=== PATIENT | female | born 1955 | race Caucasian/White ===

== ENCOUNTER 2017-03-20 05:41 | Day surgery (SDC) | payer OTHER ==
[2017-03-20] VITALS (9 sets, daily range): BP systolic 102–117; BP diastolic 58–78
[~2017-03-20] VITALS: Ht 170.2 cm; Wt 52.2 kg
[2017-03-20] MEDS ORDERED: celeBREX 200mg Cap **SURGERY PATIENTS ONLY ORAL ONE (06:00)
[2017-03-20] MEDS ORDERED: ceFAZolin 1gm in D5W 55ml IVP ONE (06:00)
[2017-03-20] MEDS ORDERED: oxyCONTIN 20mg tab ORAL ONE (06:00)
[2017-03-20] MEDS ORDERED: LR 1000ml 1,000 ML IVLG SCH (06:10)
--- NOTE | 2017-03-20 06:10 | Anethesia Preoperative Eval ---
Anesthesia Pre-op PMH/ROS General Date of Evaluation: Mar 20, 2017 Anesthesiologist: Armin ASA Score: ASA 2 Mallampati Score Class I : Soft palate, uvula, fauces, pillars visible Class II: Soft palate, uvula, fauces visible Class III: Soft palate, base of uvula visible Class IV: Only hard plate visible Mallampati Classification: Class II Surgeon: Thomas Diagnosis: Left wrist tendonitis Surgical Procedure: LEft wrist tenolysis Anesthesia History: none Family History: no anesthesia problems Allergies: Coded Allergies: CODEINE (Verified Allergy, Severe, SWELLING, ITCHING, 03/19/17) Medications: see eMAR Past Medical History Cardiovascular: Denies: HTN, CAD, MD, valve dz, arrhythmia, other Pulmonary: Denies: asthma, COPD, EMILY, other Gastrointestinal/Genitourinary: Denies: GERD, CRI, ESRD, other Neurologic/Psychiatric: Denies: dementia, CVA, depression/anxiety, TIA, other Endocrine: Denies: DM, hypothyroidism, steroids, other HEENT: Denies: cataract (L), cataract (R), glaucoma, INAJA (L), INAJA (R), other Hematology/Immune: Reports: anemia - chronic, Denies: DVT, bleeding disorder, other Musculoskeletal/Integumentary: Denies: OA, RA, DJD, DDD, edema, other PSxH Narrative: Left shoulder arthroscopy, right hernia repair, left foot sx Anesthesia Pre-op Phys. Exam Physician Exam see chart Constitutional: NAD Cardiovascular: RRR Respiratory: CTA Airway Exam Mallampati Score: Class II MO: full ROM: full Teeth: intact Anesthesia Pre-op A/P Labs see chart Studies Pre-op Studies: EKG - sr Risk Assessment & Plan Assessment: ASA II Plan: MAC Status Change Before Surgery: No Pre-Antibiotics Drug: Ancef 1g Given Within 1 Hr of Incision: Yes Time Given: 07:00 ERIC JON M.D. Mar 20, 2017 06:10
[2017-03-20] MEDS ORDERED: NKM (06:14)
[2017-03-20] MEDS ORDERED: fentaNYL 100 mcg/2 mL IV PRN (06:15)
[2017-03-20] MEDS ORDERED: Ketorolac 30mg Inj IV PRN (06:15)
[2017-03-20] MEDS ORDERED: LORazepam Inj 2mg/ml 1ml IV PRN (06:15)
[2017-03-20] MEDS ORDERED: Metoclopramide 10mg/2ml Inj IVP PRN (06:15)
[2017-03-20] MEDS ORDERED: DiphenhydrAMINE 50mg/ml Inj IVP PRN (06:15)
[2017-03-20] MEDS ORDERED: Midazolam 2mg/2ml Inj IVP PRN (06:15)
[2017-03-20] MEDS ORDERED: Bupivacaine w/Epi 0.75% 30ml Vial INJ ONE (06:25)
[2017-03-20] MEDS ORDERED: Ropivacaine 5mg/ml Vial 30ml INJ ONE (06:25)
[2017-03-20] MEDS ORDERED: Lidocaine 1% MPF 10mg/ml 5ml ONE (06:30)
[2017-03-20] MEDS ORDERED: Midazolam 2mg/2ml Inj ONE (06:30)
[2017-03-20] MEDS ORDERED: Propofol 200mg/20ml IV ONE (06:30)
[2017-03-20] MEDS ORDERED: Sterile Water Irrig 1000ml IRRIG ONE (06:30)
[2017-03-20] MEDS ORDERED: Sodium Chloride 10ml vial INJ ONE (06:30)
[2017-03-20] MEDS ORDERED: LR 1000ml ONE (06:30)
[2017-03-20] MEDS ORDERED: fentaNYL 100 mcg/2 mL IV ONE (06:30)
[2017-03-20] MEDS ORDERED: NS Irrig 1000ml ONE (06:30)
--- NOTE | 2017-03-20 06:33 | Pre-Procedure Note/Attestation ---
Pre-Procedure Note/Attestation Complete Prior to Procedure Planned Procedure: left Procedure Narrative: wrist flexor ulnaris tenosynvectomy Indications for Procedure Pre-Operative Diagnosis: fcu tendenitis Attestation I attest that I discussed the nature of the procedure; its benefits; risks and complications; and alternatives (and the risks and benefits of such alternatives ), prior to the procedure, with the patient (or the patient's legal cash posting representative). I attest that, if there was a reasonable possibility of needing a blood transfusion, the patient (or the patient's legal cash posting representative) was given the [facility] standardized written summary, pursuant to the Richie Jorge Blood Safety Act ([place] Health and Safety Code # 1645, as amended). I attest that I re-evaluated the patient just prior to the surgery and that there has been no change in the patient's H&P, except as documented below: DELIA ALFARO Mar 20, 2017 06:33
--- NOTE | 2017-03-20 06:33 | Operative Note - PDOC ---
Operative Note Operative Note Pre-op Diagnosis: fcu tendenitis Procedure: see op report Post-op Diagnosis: same as pre-op plus Operative Findings: consistent w/pre-op dx studies Anesthesia: MAC Specimen: none Complications: none Condition: stable Estimated Blood Loss: none Implant(s) used?: No DELIA ALFARO Mar 20, 2017 06:33
[2017-03-20] MEDS ORDERED: NS Irrig 1000ml IRRIG ONE (06:35)
[2017-03-20] MEDS ORDERED: Norco 5mg/325mg tab ORAL PRN (06:45)
[2017-03-20] MEDS ORDERED: HYDROmorphone 1mg/ml Carpuject SUBQ PRN (06:45)
[2017-03-20] MEDS ORDERED: D5 1/2NS 1,000 ML IV SCH (06:45)
[2017-03-20] MEDS ORDERED: Bupivacaine 0.5% Inj 30 ml vial INJ ONE (06:49)
[2017-03-20] MEDS ORDERED: Kenalog-40 1ml Vial ONE (07:08)
--- NOTE | 2017-03-20 07:28 | Immediate Post-Op Evaluation ---
Immediate Post-Op Evalulation Immediate Post-Op Evalulation Procedure: Left wrist FCU tenolysis Date of Evaluation: Mar 20, 2017 Time of Evaluation: 07:29 IV Fluids: 500 Blood Products: 0 Estimated Blood Loss: min Urinary Output: 0 Blood Pressure Systolic: 105 Blood Pressure Diastolic: 62 Pulse Rate: 60 Respiratory Rate: 16 O2 Sat by Pulse Oximetry: 100 Temperature (Fahrenheit): 98.3 Pain Score (1-10): 0 Nausea: No Vomiting: No Complications 0 Patient Status: awake, reacts, patent, none Drug: Ancef 1g Given Within 1 Hr of Incision: Yes Time Given: 07:00 ERIC JON M.D. Mar 20, 2017 07:28
--- NOTE | 2017-03-20 07:29 | 48 Hour Post Anesthesia Eval ---
Post Anesthesia Evaluation Procedure: Left wrist FCU tenolysis Date of Evaluation: Mar 20, 2017 Airway: patent Nausea: No Vomiting: No Pain Intensity: 0 Hydration Status: adequate Cardiopulmonary Status: at baseline Mental Status/LOC: patient returned to baseline Post-Anesthesia Complications: 0 Follow-up care needed: ready to discharge ERIC JON M.D. Mar 20, 2017 07:29
--- NOTE | 2017-03-23 07:15 | Operative Note - Dictated ---
DATE OF OPERATION: 03/20/2017 PROCEDURE PERFORMED: 1. LEFT WRIST FLEXOR CARPI ULNARIS TENOLYSIS. 2. LEFT WRIST FCU REPAIR PREOPERATIVE DIAGNOSIS: Left wrist flexor carpi ulnaris tendinosis. POSTOPERATIVE DIAGNOSES: 1. Left wrist flexor carpi ulnaris tendinosis. 2. Left wrist flexor carpi ulnaris longitudinal tear. SURGEON: Claudy Guzman M.D. [employer] OPERATOR: None ANESTHESIOLOGIST: Haylie Cui M.D. ANESTHESIA: MAC. INDICATION FOR PROCEDURE: The patient is a pleasant female who has had injury to her left wrist, has persistent pain. She failed conservative treatment. After failing conservative treatment, she elected to go for a tenosynovectomy of the FCU with a possible repair based on the intraoperative findings. Risks, limitations, expectations and complications of the procedure were discussed in detail. All questions were addressed. DESCRIPTION OF PROCEDURE: An informed consent was obtained. The patient was brought to the operating room and placed supine under monitored anesthesia control. Tourniquet applied to left proximal arm. Left arm was prepped and draped in a sterile manner. Time-out was performed. FCU tendon was identified. An Esmarch was used to exsanguinate the extremity. Skin was incised. Blunt dissection down to the FCU tendon was performed. The surrounding of the FCU tendon was then incised. There were significant adhesions along the FCU tendon, which was released. Once the adhesions were released proximally and distally, the FCU tendon was evaluated. There was a longitudinal split along the volar surface of the FCU. A #2 Vicryl stitch was then placed to repair the longitudinal split. Once that was done, the wound was copiously irrigated. The skin was approximated with 4-0 nylon suture. Steri-Strips and a sterile dressing were applied. The patient was awoken and taken to recovery room with stable vital signs. ESTIMATED BLOOD LOSS: Minimal. COMPLICATIONS: None. SPECIMENS: None. IMPLANTS: None. Claudy Guzman M.D. DR: FARTUN JOB#: [id number] CC: ITALO
== END 2017-03-20 08:55 | disposition home or self-care (01) ==
LOC: SUR 05:41
DX: M65.842 Other synovitis and tenosynovitis, left hand (principal); Z82.3 Family history of stroke; Z87.891 Personal history of nicotine dependence; Z88.6 Allergy status to analgesic agent; Z81.1 Family history of alcohol abuse and dependence
CPT/HCPCS: 25295; J0690; J2250; J2405; J2704; J3010; J3301; J3490; J7120; 94003; 94150